=== PATIENT | female | born 1955 | race Caucasian/White ===

== ENCOUNTER 2018-11-13 03:01 | Emergency (ER) | payer BC ==
--- NOTE | 2018-11-13 03:13 | ED Physician Documentation ---
PD HPI CHEST PAIN - Stated complaint Stated Complaint: CP/FAST HEART - Chief complaint Chief Complaint: Cardiac - History obtained from History obtained from: Patient - History of Present Illness Timing - onset: How many hours ago (04/25) Timing - onset during: Sleep Timing - duration: Hours (04/25) Timing - details: Abrupt onset (She awoke from sleep with a feeling of fast heart rate and some pressure in discomfort in her chest. She had had similar episodes a few days ago and also a couple of months ago each lasting for just a few minutes. The one recently had been improved with her holding her breath for a few seconds. She had not seen her primary care about them. The episode tonight was not improved with holding her breath, sitting up, walking around. He continued for over an hour and so she came in for evaluation.) Quality: Pressure, Tightness Associated symptoms: Shortness of air, Palpitations. No: Nausea, Feeling faint / dizzy, Cough Similar symptoms before: No diagnosis (brief episodes lasting just few minutes. No evaluation of them.) Recently seen: Not recently seen Review of Systems Constitutional: denies: Fever, Chills, Myalgias Nose: denies: Rhinorrhea / runny nose, Congestion Throat: denies: Sore throat Cardiac: reports: Chest pain / pressure, Palpitations. denies: Pedal edema Respiratory: denies: Cough, Wheezing GI: reports: Abdominal Pain, Nausea, Vomiting, Diarrhea : denies: Dysuria, Frequency Neurologic: denies: Near syncope, Altered mental status, Headache PD PAST MEDICAL HISTORY - Past Medical History Cardiovascular: None Respiratory: None Neuro: None Endocrine/Autoimmune: HyPOthyroidism - Present Medications Home Medications: Ambulatory Orders Medication Instructions Recorded Confirmed RX: Metoprolol Tartrate [Lopressor] 25 mg PO DAILY #30 tablet 11/13/18 - Allergies Allergies/Adverse Reactions: Allergies Allergy/AdvReac Type Severity Reaction Status Date / Time Penicillins Allergy Hives Verified 11/13/18 03:11 promethazine Allergy Unknown Verified 11/13/18 03:11 PD ED PE NORMAL - Vitals Vital signs reviewed: Yes (monitor showing SVT 170s.) - General General: Alert and oriented X 3, No acute distress, Well developed/nourished - HEENT HEENT: Moist mucous membranes, Pharynx benign - Neck Neck: Supple, no meningeal sign, No adenopathy - Cardiac Cardiac: RRR, No murmur - Respiratory Respiratory: Clear bilaterally - Abdomen Abdomen: Soft, Non tender - Back Back: No CVA TTP - Derm Derm: Normal color, Warm and dry, No rash - Extremities Extremities: No deformity, No tenderness to palpate, No edema - Neuro Neuro: Alert and oriented X 3, No motor deficit, Normal speech Results - Vitals Vitals: Vital Signs - 24 hr 11/13/18 11/13/18 11/13/18 03:04 03:12 03:16 Temperature 36.6 C Heart Rate 171 H 120 H 115 H Respiratory 16 17 Rate Blood Pressure 133/84 H 133/84 H O2 Saturation 96 99 11/13/18 11/13/18 11/13/18 03:17 03:29 03:32 Temperature Heart Rate 114 H 105 H 104 H Respiratory 17 16 17 Rate Blood Pressure 129/77 O2 Saturation 97 96 97 11/13/18 11/13/18 11/13/18 03:35 03:41 03:54 Temperature Heart Rate 103 H 91 87 Respiratory 16 17 16 Rate Blood Pressure 129/77 O2 Saturation 97 95 11/13/18 11/13/18 04:03 04:40 Temperature Heart Rate 90 85 Respiratory 15 16 Rate Blood Pressure 120/73 125/78 O2 Saturation 96 99 Oxygen O2 Source Room air - EKG (time done) 03:08 Rate: Rate (enter#) (168) Rhythm: SVT [place]: Normal Ischemia: Normal ST segments, Non specific changes 03:26 Rate: Rate (enter#) (108) Rhythm: Sinus tachycardia [place]: Normal Intervals: Normal SD QRS: Normal Ischemia: Normal ST segments. No: ST elevation c/w ischemia, ST depression Compare to prior EKG: Changed from prior EKG (resolved SVT, now NSR.) - Labs Labs: Laboratory Tests 11/13/18 11/13/18 11/13/18 03:10 03:32 03:32 WBC 8.8 RBC 5.63 H Hgb 15.3 Hct 48.1 H MCV 85.4 MCH 27.2 MCHC 31.8 L RDW 14.9 Plt Count 281 MPV 10.9 H Neut # (Auto) 4.8 Lymph # (Auto) 3.1 [place] # (Auto) 0.7 Eos # (Auto) 0.2 Baso # (Auto) 0.0 Absolute Nucleated RBC 0.00 Nucleated RBC % 0.0 Sodium 141 Potassium 3.5 Chloride 105 Carbon Dioxide 22 Anion Gap 14.0 H BUN 18 Creatinine 1.0 Estimated GFR (MDRD) 56 L Glucose 114 H Calcium 9.6 Magnesium 1.9 Total Bilirubin 0.6 AST 21 ALT 25 Alkaline Phosphatase 72 Total Protein 7.0 Albumin 3.5 Globulin 3.5 Albumin/Globulin Ratio 1.0 Lipase 23 TSH 21.94 H PD MEDICAL DECISION MAKING - ED course Complexity details: reviewed results, re-evaluated patient (she converted to NSR with IV start. ), considered differential (Sounds like episodic SVT by her description of recent episodes and then the EKG tonight. She does not have any history of structural heart disease. Her oxygenation is good. She is on a blood thinner for factor V Leiden deficiency. This should preclude DVT/PE. I do not hear any murmurs. She does not appear to be in heart failure.), d/w patient Departure - Departure Disposition: 01 Home, Self Care Clinical Impression: SVT (supraventricular tachycardia) Condition: Stable Record reviewed to determine appropriate education?: Yes Instructions: ED Tachycardia Pat PSVT Follow-Up: Marie Vasquez MD [Primary Care Provider] - Prescriptions: RX: Metoprolol Tartrate [Lopressor] 25 mg PO DAILY #30 tablet Comments: Stay well-hydrated. I would suggest taking the metoprolol 25 mg daily at night. Follow-up with your primary care for further evaluation such as potential ultrasound of your heart called an echo Cardiogram and possibly stress testing of your heart. This would be to ensure no structural heart problems (such as valve problems) or ischemic heart problems related to the electrical. If you have other episodes, try Valsalva maneuvers like we talked about such as breath-holding as you had done or bearing down like a bowel movement or bringing your knees up to your chest while lying down as examples. Discharge Date/Time: 11/13/18 04:45
[2018-11-13] MEDS ORDERED: METOPROLOL 5 MG/5 ML VIAL IVP STA (03:31)
[2018-11-13 03:39] LABS: BASOPHILS % (AUTO) 0.3 %; EOSINOPHILS # (AUTO) 0.2 10^3/uL (0.0-0.7); EOSINOPHILS % (AUTO) 2.5 %; HGB - HEMOGLOBIN 15.3 g/dL (12.0-16.0); LYMPHOCYTES # (AUTO) 3.1 10^3/uL (1.5-3.5); LYMPHOCYTES % (AUTO) 35.2 %; MEAN CORPUSCULAR HEMOGLOBIN 27.2 pg (27.0-31.0); MEAN CORPUSCULAR HGB CONC 31.8 g/dL (32.0-36.0); MEAN CORPUSCULAR VOLUME 85.4 fL (81.0-99.0); MEAN PLATELET VOLUME 10.9 fL (7.9-10.8); MONOCYTES # (AUTO) 0.7 10^3/uL (0.0-1.0); MONOCYTES % (AUTO) 7.6 %; NEUTROPHILS # (AUTO) 4.8 10^3/uL (1.5-6.6); NEUTROPHILS % (AUTO) 54.2 %; PLT - PLATELET COUNT 281 10^3/uL (130-450); RED BLOOD COUNT 5.63 10^6/uL (4.20-5.40); RED CELL DISTRIBUTION WIDTH 14.9 % (12.0-15.0); WHITE BLOOD COUNT 8.8 x10^3/uL (4.8-10.8)
[2018-11-13 04:09] LABS: ALBUMIN 3.5 g/dL (3.2-5.5); BILIRUBIN,TOTAL 0.6 mg/dL (0.2-1.0); CALCIUM 9.6 mg/dL (8.5-10.3); MAGNESIUM 1.9 mg/dL (1.7-2.8)
[2018-11-13 04:45] VITALS: BP 125/78
== END 2018-11-13 04:45 | disposition home or self-care (01) ==
LOC: ED 03:01
DX: I47.1 Supraventricular tachycardia (principal)
CPT/HCPCS: 36415; 80053; 83690; 83735; 84443; 85025; 93005; 96374; 99284

== ENCOUNTER 2021-08-26 14:34 | Outpatient (CLI) | payer BC ==
[2021-08-26 15:26] LABS: THYROID STIMULATING HORMONE 2.06 uIU/mL (0.34-5.60)
== END 2021-08-26 14:35 | disposition home or self-care (01) ==
LOC: LAB 14:34
PROVIDERS: ATTEND Hospitalist
DX: E03.9 Hypothyroidism, unspecified (principal)
CPT/HCPCS: 36415; 84443

== ENCOUNTER 2021-11-18 13:07 | Outpatient (CLI) | payer BC ==
[2021-11-18 13:43] LABS: ALBUMIN 3.7 g/dL (3.2-5.5); ALBUMIN/GLOBULIN RATIO 1.1 (1.0-2.2); BILIRUBIN,TOTAL 0.3 mg/dL (0.2-1.0); CALCIUM 9.5 mg/dL (8.5-10.3); CREATININE 1.1 mg/dL (0.4-1.0); POTASSIUM 4.2 mmol/L (3.5-5.0); TOTAL PROTEIN 7.1 g/dL (6.7-8.2)
[2021-11-18 13:59] LABS: THYROID STIMULATING HORMONE 1.97 uIU/mL (0.34-5.60)
[2021-11-18 14:01] LABS: FREE T4 (FREE THYROXINE) 1.18 ng/dL (0.58-1.64)
== END 2021-11-18 13:08 | disposition home or self-care (01) ==
LOC: LAB 13:07
PROVIDERS: ATTEND Internal Medicine Endocrinology, Diabetes & Metabolism
DX: E21.3 Hyperparathyroidism, unspecified (principal); E55.9 Vitamin D deficiency, unspecified; E03.8 Other specified hypothyroidism; E06.3 Autoimmune thyroiditis
CPT/HCPCS: 36415; 80053; 82306; 83970; 84439; 84443

== ENCOUNTER 2022-04-05 12:27 | Outpatient (CLI) | payer BC ==
[2022-04-05 13:19] LABS: THYROID STIMULATING HORMONE 2.23 uIU/mL (0.34-5.60)
[2022-04-05 13:21] LABS: FREE T4 (FREE THYROXINE) 1.29 ng/dL (0.58-1.64)
[2022-04-05 13:40] LABS: ALBUMIN 3.7 g/dL (3.2-5.5); ALBUMIN/GLOBULIN RATIO 0.9 (1.0-2.2); BILIRUBIN,TOTAL 0.6 mg/dL (0.2-1.0); CALCIUM 9.4 mg/dL (8.5-10.3); POTASSIUM 4.1 mmol/L (3.5-5.0); TOTAL PROTEIN 7.8 g/dL (6.7-8.2)
== END 2022-04-05 12:28 | disposition home or self-care (01) ==
LOC: LAB 12:27
PROVIDERS: ATTEND Internal Medicine Endocrinology, Diabetes & Metabolism
DX: E03.8 Other specified hypothyroidism (principal); E06.3 Autoimmune thyroiditis; E21.3 Hyperparathyroidism, unspecified; E55.9 Vitamin D deficiency, unspecified
CPT/HCPCS: 36415; 80053; 82306; 83970; 84439; 84443